=== PATIENT | female | born 1950 | race Hispanic/Latino ===

== ENCOUNTER 2019-10-17 10:16 | Outpatient (CLI) | payer MEDICARE ==
--- NOTE | 2019-10-17 11:20 | Cat Scan Report ---
CT CHEST WITHOUT CONTRAST INDICATION / CLINICAL INFORMATION: Pulmonary nodule follow-up. TECHNIQUE: Axial CT images were obtained through the chest without contrast. Sagittal and coronal reformatted im ages. All CT scans at this location are performed using CT dose reduction for ALARA by means of autom ated exposure control. COMPARISON: None available. FINDINGS: HEART: Borderline to mild cardiomegaly is present. Small pericardial effusion measures up to 6 mm in thickness along the left heart border. THORACIC AORTA: No significant abnormality. MEDIASTINUM and BIANKA: No significant abnormality. LUNGS: The lungs are clear. No significant parenchymal lung disease is detected. No suspicious nodule or mass. No infiltrate. PLEURA: No significant pleural effusion. No pneumothorax. SKELETAL SYSTEM: Mild osteopenia and thoracic spondylosis. UPPER ABDOMEN: No acute abnormality. ADDITIONAL FINDINGS: None. IMPRESSION: Borderline heart size and small pericardial effusion. No pulmonary nodule is detected on CT. See above. Osteopenia. Signer Name: Fred Carvajal Jr, MD Signed: 10/17/2019 11:15 AM Workstation Name: [id number]
== END 2019-10-17 10:17 | disposition home or self-care (01) ==
LOC: CT 10:16
PROVIDERS: ATTEND Specialist
DX: I31.3 Pericardial effusion (noninflammatory) (principal); M47.814 Spondylosis without myelopathy or radiculopathy, thoracic region; M85.88 Other specified disorders of bone density and structure, other site; R91.1 Solitary pulmonary nodule
CPT/HCPCS: 71250